=== PATIENT | female | born 1985 | race American Indian/Alaskan Native ===

== ENCOUNTER 2018-05-02 15:58 | Outpatient (CLI) | payer OTHER ==
--- NOTE | 2018-05-02 19:06 | XRay Report ---
FINAL REPORT EXAM: XR KNEE 1-2V RT HISTORY: PAIN IN RIGHT HIP TECHNIQUE: Frontal and lateral views of right knee. PRIORS: None. FINDINGS: Joint spaces maintained. No apparent fracture or dislocation. Soft tissues grossly unremarkable. IMPRESSION: 1. No acute osseous abnormality.
--- NOTE | 2018-05-02 21:27 | XRay Report ---
FINAL REPORT EXAM: XR HIP 2-3V RT HISTORY: PAIN IN RIGHT HIP . History of hip dislocation 3 years ago TECHNIQUE: AP view of the pelvis and a single coned-down lateral view of the right hip. PRIORS: None. FINDINGS: No evidence for acute fracture or dislocation is seen. Joint spaces are maintained. The soft tissues are unremarkable. Bony mineralization is normal. IMPRESSION: No acute soft tissue or bony abnormality noted in the right hip.
== END 2018-05-02 15:59 | disposition home or self-care (01) ==
LOC: XRAY 15:58
PROVIDERS: ATTEND Orthopaedic Surgery
DX: M25.551 Pain in right hip (principal); M25.561 Pain in right knee